=== PATIENT | female | born 1980 | race Caucasian/White ===

== ENCOUNTER 2018-10-16 10:28 | Inpatient (IN) ==
[2018-10-16] MEDS ORDERED: Aluminum/Magnesium/Simethacone Susp 30 ML UDC PO PRN (15:45)
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
[2018-10-16] MEDS ORDERED: Ibuprofen 600 MG Tablet PO SCH (22:00)
[2018-10-17] MEDS ORDERED: Acetaminophen 325 MG Tablet PO PRN (10:53)
[2018-10-17] MEDS ORDERED: Ibuprofen 600 MG Tablet PO PRN (10:54)
--- NOTE | 2018-10-17 12:17 | P.PNPSY ---
Subjective Chief Complaint: "People want to kill me but I feel safe here" Remarks: Patient seen for follow-up, chart reviewed, patient discussed with nursing staff ; we reviewed the patient's mood, thoughts, and behaviors from overnight and this morning. Nursing reports that the patient slept 8 hours overnight. She was observed to be appropriate in the dayroom but remains guarded with staff and asked nursing staff to leave her alone. She denies suicidal or homicidal ideations. She has endorsed incomplete auditory hallucinations characterized as "yes I hear voices I hear them singing pleasantries to me." Patient was seen this morning after breakfast sitting in the day room laughing and talking with other patients. Patient was cooperative with an interview this morning and reports she is feeling better because of the positive energy that surrounds her. She expressed belief that she is in empath and is strongly affected by other people's energy and emotions. We discussed the effect this has had on her life and she attributes it to the severe mood swings as well as behavioral problems that she has had and this is resulted in her losing custody of her child. The patient reports needing help with something for her moods so that she could eventually have more access to her child. She reports being tried on many different medications and complains of the ones that tend to sedate her or slow her down. We discussed risks benefits side effects and alternatives such as Latuda and she was agreeable to that particular medication. Review of Systems All other systems reviewed negative except as stated in HPI Mental Status Examination Appearance: Disheveled Consciousness: Alert Orientation: Person, Place, Situation Motor Activity: Normal gait Speech: Unremarkable Language: Adequate Fund of Knowledge: Adequate Attention and Concentration: Easily distracted Memory: Unremarkable Mood: Irritable Affect: Labile Thought Process & Associations: Intact, Logical, Goal directed Thought Content: Delusional Hallucination Type: None Delusion Type: Paranoid Suicidal Ideation: No Suicidal Plan: No Suicidal Intention: No Homicidal Ideation: No Homicidal Plan: No Homicidal Intention: No Insight: Fair Judgment: Impulsive Assessment and Plan - Assessment (1) Brief psychotic disorder Code(s): F23 - Brief psychotic disorder Status: Acute (2) Bipolar affective disorder, most recent episode mixed Code(s): F31.60 - Bipolar disorder, current episode mixed, unspecified Status : Acute (3) Cocaine abuse Code(s): F14.10 - Cocaine abuse, uncomplicated Status: Acute (4) Cannabis abuse Code(s): F12.10 - Cannabis abuse, uncomplicated Status: Acute - Plan Plan: 10/16/2018. Initial assessment and plan: The patient is a 38-year-old woman with a history of bipolar disorder and ADHD who presents with symptoms of psychosis and a severe self inflicted laceration of her left forearm. The patient has consistently denied this was an intent to kill herself but her mental status has been very disorganized tangential and unreliable therefore she will need continued inpatient observation and stabilization to ensure that risks of harm to self or others have been fully mitigated. We discussed risks benefits side effects and alternative treatments for both her history of bipolar disorder as well as the recent symptoms of psychosis but she declines at this time. She is willing to use hydroxyzine as needed for anxiety and insomnia. The patient demonstrated minimal capacity to understand the risk benefits side effects of her medical treatment but not fully aware of significance of her current mental status and psychiatric condition therefore she is considered unable to sign herself involuntarily at this time and a Jules act 32 order will be placed. 1. Continue with admission to inpatient psychiatry at [facility]; involuntary/competent legal status. 2. Routine unit precautions. 3. Comfort medications ordered for as needed treatment of constipation, heartburn, diarrhea, and mild pain. 4. Hydroxyzine 50mg po q6H prn anxiety/insomnia. 5. Patient will participate in the unit programming to include group therapies , milieu therapy and recreational therapies. 6. Psychiatric consult placed for second opinion to be a 32 order. 7. Discharge planning: Patient would benefit from referral options for substance use treatment. Estimated LOS: 3 days 10/17/2018: Fair response to inpatient stabilization; patient's mood and affect seem improved and her thoughts are more organized today. Patient acknowledges her long history of bipolar disorder treatments and symptoms that have interfered with her social and industrial functioning. We discussed risks benefits side effects and alternatives and she is willing to give Latuda to try. The patient has been cooperative with her care and feels safe on the unit and is appropriate for signing in voluntarily. Continue inpatient treatment and observation but convert to voluntary status. Continue hydroxyzine 50 mg every 6 hours as needed for anxiety or insomnia. Start Latuda 20 mg once a day for treatment of bipolar depression/mixed chani. Anticipate titration to 40 mg if tolerated. Discharge planning: Patient will need discharge follow-up with psychiatry as well as referrals for substance use treatment options. Anticipate discharge by the end of the week. Justification for Continued Inpatient Stay: Patient remains an elevated risk for self-harm by self injury and will require further inpatient stabilization and preparation of a safe discharge plan. Moving patient to a less restrictive environment at this time may result in decompensation.
--- NOTE | 2018-10-18 13:04 | P.PNPSY ---
Subjective Chief Complaint: "People want to kill me but I feel safe here" Remarks: Patient seen for follow-up, chart reviewed, patient discussed with nursing staff ; we reviewed the patient's mood, thoughts, and behaviors from overnight and this morning. Nursing reports the patient slept well for 8 hours overnight. There is been no bizarre or delusional statements made today. She denies suicidal or homicidal ideations and patient was seen resting in her room after breakfast. She was calm and cooperative and pleasant with interview. She reports feeling safe on the unit and feeling more hopeful for her future. She has tolerated the first 2 doses of Latuda and she is encouraged by the initial response. Patient expressed interest in referrals for substance use and recovery treatment she would like to anticipate discharge for tomorrow. Review of Systems All other systems reviewed negative except as stated in HPI Mental Status Examination Appearance: Disheveled Consciousness: Alert Orientation: x4 Motor Activity: Normal gait Speech: Unremarkable Language: Adequate Fund of Knowledge: Adequate Attention and Concentration: Adequate Memory: Unremarkable Mood: Good Affect: Appropriate Thought Process & Associations: Intact, Logical, Goal directed Thought Content: Appropriate Hallucination Type: None Delusion Type: None Suicidal Ideation: No Suicidal Plan: No Suicidal Intention: No Homicidal Ideation: No Homicidal Plan: No Homicidal Intention: No Insight: Fair Judgment: Impulsive Assessment and Plan - Assessment (1) Brief psychotic disorder Code(s): F23 - Brief psychotic disorder Status: Acute (2) Bipolar affective disorder, most recent episode mixed Code(s): F31.60 - Bipolar disorder, current episode mixed, unspecified Status : Acute (3) Cocaine abuse Code(s): F14.10 - Cocaine abuse, uncomplicated Status: Acute (4) Cannabis abuse Code(s): F12.10 - Cannabis abuse, uncomplicated Status: Acute - Plan Plan: 10/16/2018. Initial assessment and plan: The patient is a 38-year-old woman with a history of bipolar disorder and ADHD who presents with symptoms of psychosis and a severe self inflicted laceration of her left forearm. The patient has consistently denied this was an intent to kill herself but her mental status has been very disorganized tangential and unreliable therefore she will need continued inpatient observation and stabilization to ensure that risks of harm to self or others have been fully mitigated. We discussed risks benefits side effects and alternative treatments for both her history of bipolar disorder as well as the recent symptoms of psychosis but she declines at this time. She is willing to use hydroxyzine as needed for anxiety and insomnia. The patient demonstrated minimal capacity to understand the risk benefits side effects of her medical treatment but not fully aware of significance of her current mental status and psychiatric condition therefore she is considered unable to sign herself involuntarily at this time and a Jules act 32 order will be placed. 1. Continue with admission to inpatient psychiatry at [facility]; involuntary/competent legal status. 2. Routine unit precautions. 3. Comfort medications ordered for as needed treatment of constipation, heartburn, diarrhea, and mild pain. 4. Hydroxyzine 50mg po q6H prn anxiety/insomnia. 5. Patient will participate in the unit programming to include group therapies , milieu therapy and recreational therapies. 6. Psychiatric consult placed for second opinion to be a 32 order. 7. Discharge planning: Patient would benefit from referral options for substance use treatment. Estimated LOS: 3 days 10/17/2018: Fair response to inpatient stabilization; patient's mood and affect seem improved and her thoughts are more organized today. Patient acknowledges her long history of bipolar disorder treatments and symptoms that have interfered with her social and industrial functioning. We discussed risks benefits side effects and alternatives and she is willing to give Latuda to try. The patient has been cooperative with her care and feels safe on the unit and is appropriate for signing in voluntarily. Continue inpatient treatment and observation but convert to voluntary status. Continue hydroxyzine 50 mg every 6 hours as needed for anxiety or insomnia. Start Latuda 20 mg once a day for treatment of bipolar depression/mixed chani. Anticipate titration to 40 mg if tolerated. Discharge planning: Patient will need discharge follow-up with psychiatry as well as referrals for substance use treatment options. Anticipate discharge by the end of the week. 10/18/2018: Good response to treatment and inpatient stabilization; the patient' s mood and affect are improved and thought processes are more organized with no evidence of psychosis. She has tolerated the initial dosing of Latuda and is expressing sincere motivation for recovery. Continue inpatient treatment and observation with anticipated discharge tomorrow if she remains stable and medications well tolerated. Justification for Continued Inpatient Stay: Patient remains an elevated risk for self-harm and will require further inpatient stabilization and preparation of a safe discharge plan. Moving patient to a less restrictive environment at this time may result in decompensation.
[2018-10-19 05:53] VITALS: BP 115/67; PULSE 88; RESP 16; TEMP 98; O2SAT 96
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
== END 2018-10-19 11:45 | disposition home or self-care (01) | DRG 885 ==
LOC: H270 11:11
PROVIDERS: ADMIT Psychiatry & Neurology Psychiatry; ATTEND Psychiatry & Neurology Psychiatry